=== PATIENT | female | born 1945 | race Caucasian/White ===

== ENCOUNTER 2018-10-27 19:15 | Emergency (ER) | payer OTHER ==
[~2018-10-27] VITALS: Ht 165.1 cm; Wt 64.9 kg
--- NOTE | ~2018-10-27 | EKG ---
[place] [address] [facility] [place] [address] ELECTROCARDIOGRAM REPORT Name: POLO DEL CASTILLO Room #: [facility]#: [id number] Admission: 10/27/18 Attend Phys: Discharge: 10/27/18 Date of : 45 Report #: [id number] THIS REPORT FOR: //name// [facility] ED Test Date: 2018-10-27 Test Time: 19:49:06 Pat Name: POLO DEL CASTILLO Department: Room: Gender: F [employer] [place]: MAEGAN : 1945 Requested By: aSndra Paz Order Number: [id number] MD: Milo Mendez Measurements Intervals [place] Rate: 77 P: 65 CA: 184 QRS: -44 QRSD: 109 T: 99 QT: 412 QTc: 467 Interpretive Statements Sinus rhythm LVH with secondary repolarization abnormality Anterior Q waves, possibly due to LVH Compared to ECG 04/30/2015 14:24:30 No significant change was found Electronically Signed On 10-28-2018 16:07:11 MOLD CARRIER by Milo Mendez [email or web address] <ELECTRONICALLY SIGNED> By: Milo Mendez MD, [facility] 10/28/18 1607 48 48 Milo Mendez MD, FAC /EPI
[~2018-10-27 19:15] MED LIST: ALLERGY RELIEF180 MG PO; ASPIR 8181 MG PO; AUGMENTIN 875875 MG PO; COREG25 MG PO; FLAGYL500 MG PO; FLORANEX TABLE1 EACH PO; JANUVIA100 MG PO; LANTUS100 UNIT/M SUBQ; LEVAQUIN 500 M500 M2 PO; LIPITOR10 MG PO; LOMOTIL TABLET1 EACH PO; MYFORTIC360 MG PO; NEXIUM40 MG PO; NORVASC5 MG PO; ONDANSETRON HCL4 M2 PO; PROGRAF0.5 MG PO; RESTORIL30 MG PO; VITAMIN D2000 UNIT PO; WELLBUTRIN SR100 MG PO; XANAX 0.5 MG0.5 MG PO; ZOFRAN4 MG PO
[2018-10-27 20:13] LABS: URINE BLOOD NEGATIVE (Negative); URINE CLARITY CLEAR; URINE COLOR YELLOW; URINE GLUCOSE-RANDOM* NEGATIVE (Negative); URINE KETONES TRACE (Negative); URINE LEUKOCYTES NEGATIVE (Negative); URINE NITRITE NEGATIVE (Negative); URINE PROTEIN (DIPSTICK) NEGATIVE (Negative); URINE SPECIFIC GRAVITY >= 1.030 (1.005-1.035); URINE UROBILINOGEN 0.2 E.U./dl (0.2-1.0)
[2018-10-27 20:15] LABS: ICTOTEST (BILI CONFIRMATORY) Negative (Negative); URINE BILIRUBIN NEGATIVE (Negative)
[2018-10-27 20:23] LABS: MCH 30.2 pg (26.0-34.0)
[2018-10-27 20:25] LABS: ABSOLUTE NEUTROPHILS 8.8 thou/uL (1.4-8.2); BASOPHILS 0.4 % (0.0-2.0); EOSINOPHILS 0.7 % (0.0-3.0); HEMATOCRIT 42.7 % (37.0-47.0); HEMOGLOBIN 14.7 gm/dL (12.0-15.0); LYMPHOCYTES 4.1 % (24.0-44.0); MCHC 34.4 g/dL (28.0-37.0); MONOCYTES 2.2 % (1.0-8.0); PLATELET COUNT 178 thou/uL (150-400); POLYS 92.6 % (36.0-66.0); RBC 4.85 mil/uL (4.20-5.00); RDW 13.9 % (10.5-14.5); WBC 9.4 thou/uL (4.0-11.0)
[2018-10-27] MEDS ORDERED: ZANTAC 150MG T150 MG PO (20:25)
[2018-10-27] MEDS ORDERED: NOVOLOG100 UNIT/1 SUBQ (20:26)
[2018-10-27] MEDS ORDERED: ZYRTEC10 M5 PO (20:27)
[2018-10-27 20:33] LABS: ANION GAP 13 mmol/L (7-16); BUN 20 mg/dL (7-18); CALCIUM 9.9 mg/dL (8.5-10.1); CHLORIDE 103 mmol/L (98-107); CO2 23 mmol/L (21-32); GLUCOSE 157 mg/dL (74-106); POTASSIUM 4.6 mmol/L (3.5-5.1); SODIUM 139 mmol/L (136-145)
[2018-10-27 20:40] LABS: ALBUMIN 4.2 g/dL (3.4-5.0); DIRECT BILIRUBIN < 0.1 mg/dL (<0.1-0.3); SGOT 21 U/L (15-37); SGPT 18 U/L (30-65); TOTAL BILIRUBIN 0.5 mg/dL (<0.1-1.0); TOTAL PROTEIN 7.9 g/dL (6.4-8.2); TROPONIN-I <0.06 ng/mL (<0.06)
[2018-10-27] MEDS ORDERED: REGLAN 10 MG TA10 MG PO (22:50)
[2018-10-27 23:55] VITALS: BP 143/78
== END 2018-10-27 23:55 | disposition home or self-care (01) ==
LOC: ER 19:15
PROVIDERS: Physician Assistant
DX: R11.2 Nausea with vomiting, unspecified (principal); R19.7 Diarrhea, unspecified; R10.9 Unspecified abdominal pain; K21.9 Gastro-esophageal reflux disease without esophagitis; E11.9 Type 2 diabetes mellitus without complications; I10 Essential (primary) hypertension; Z85.828 Personal history of other malignant neoplasm of skin; Z90.710 Acquired absence of both cervix and uterus; Z95.5 Presence of coronary angioplasty implant and graft; Z94.0 Kidney transplant status; Z98.890 Other specified postprocedural states; Z88.2 Allergy status to sulfonamides; Z88.8 Allergy status to other drugs, medicaments and biological substances; Z79.4 Long term (current) use of insulin

== ENCOUNTER → 2018-11-06 | Outpatient (CLI) | payer OTHER ==
[~2018-11-06] MED LIST changes: +NOVOLOG100 UNIT/1 SUBQ; +REGLAN 10 MG TA10 MG PO; +ZANTAC 150MG T150 MG PO; +ZYRTEC10 M5 PO
== END ==
LOC: CAT 12:19
DX: K57.30 Diverticulosis of large intestine without perforation or abscess without bleeding (principal); I70.0 Atherosclerosis of aorta; J98.11 Atelectasis; K59.00 Constipation, unspecified; M25.78 Osteophyte, vertebrae

== ENCOUNTER → 2018-11-11 | Outpatient (CLI) | payer OTHER ==
[~2018-11-11] MED LIST changes: +ACETAMINOPHEN325 M1 PO; +AMBIEN 5 MG TABL5 M1 PO; +CIPRO500 MG PO; +COLACE 100 MG100 MG PO; +METRONIDAZOLE500 M4 PO; +OSTERA TABLET1 EAC1 PO; +PERCOCET PO; +PROBIOTIC1 EAC1; +PROGRAF1 MG PO; +ZOFRAN 4 MG ORAL4 MG DISSOLVE
[2018-11-11 15:29] LABS: CREATININE 1.4 mg/dL (0.6-1.0)
== END ==
LOC: LABMALL 14:54 → CAT 14:54
PROVIDERS: Nurse Practitioner
DX: K57.92 Diverticulitis of intestine, part unspecified, without perforation or abscess without bleeding (principal); N26.1 Atrophy of kidney (terminal)

== ENCOUNTER 2018-12-02 13:03 | Inpatient (IN) | payer OTHER ==
[~2018-12-02] VITALS: Ht 165.1 cm; Wt 59.9 kg
[~2018-12-02 13:03] MED LIST changes: -ACETAMINOPHEN325 M1 PO; -AMBIEN 5 MG TABL5 M1 PO; -CIPRO500 MG PO; -COLACE 100 MG100 MG PO; -METRONIDAZOLE500 M4 PO; -OSTERA TABLET1 EAC1 PO; -PERCOCET PO; -PROBIOTIC1 EAC1; -PROGRAF1 MG PO; -ZOFRAN 4 MG ORAL4 MG DISSOLVE
--- NOTE | 2018-12-02 13:42 | NUR ---
REC DIRECT ADMIT AROUND 1330, CALLED DR. FELICIANO TO GIVE HEADS UP, PT STATES SX HAVE HAPPENED 3X SINCE HER KIDNEY TRANSPLANT IN 2013 (HAS BOTH KIDNEYS YET EXPLAINED IT WAS ADDED TO HER RIGHT ABDOMEN, CALLED AIDE TO HELP WITH GETTING PT SETTLED. WILL CONTINUE W/ASSESSMENT AND ADMISSION. LET HER KNOW SHE COULD LIE DOWN WHILE SHE WAITED FOR STAFF.
[2018-12-02] MEDS ORDERED: PROBIOTIC1 EAC1 (14:18)
[2018-12-02] MEDS ORDERED: AMBIEN 5 MG TABL5 M1 PO (14:22)
[2018-12-02] MEDS ORDERED: OSTERA TABLET1 EAC1 PO (14:22)
[2018-12-02 14:39] VITALS: BP 142/65
[2018-12-02 16:00] LABS: HEMOGLOBIN 12.1 gm/dL (12.0-15.0); MCH 28.6 pg (26.0-34.0); MCHC 32.6 g/dL (28.0-37.0); MCV 87.7 fL (80.0-100.0); RBC 4.22 mil/uL (4.20-5.00); RDW 14.3 % (10.5-14.5); WBC 5.2 thou/uL (4.0-11.0)
[2018-12-02 16:12] LABS: CALCIUM 9.3 mg/dL (8.5-10.1); CREATININE 1.4 mg/dL (0.6-1.0)
[2018-12-02 16:16] LABS: ALBUMIN 3.7 g/dL (3.4-5.0); TOTAL BILIRUBIN 0.3 mg/dL (<0.1-1.0); TOTAL PROTEIN 7.3 g/dL (6.4-8.2)
--- NOTE | 2018-12-02 16:22 | NUR ---
SEVERAL IV ATTEMPTS MADE BY THIS NURSE AND ANOTHER, CALLING IV TEAM FOR ASSISTANCE. PT DOING WELL, CALM, NO PAIN AT THIS TIME
[2018-12-02 18:00] VITALS: BP 139/62
--- NOTE | 2018-12-02 19:04 | NUR ---
CT CALLED, PT CANNOT HAVE CONTRAST, EMAILED DR. FELICIANO TO GIVE HIM AN FYI SO HE CAN CALL BACK/ORDER OTHERWISE, WILL LET NOC NURSE KNOW TO KEEP A HEADS UP
--- NOTE | 2018-12-02 19:37 | NUR ---
DR FELICIANO TALKING W/PT REGARDING ORDERING OXYCODONE AND WHETHER OR NOT SHE CAN HAVE CONTRAST, NOC NURSE AWARE
[2018-12-02 20:00] VITALS: BP 154/63; BP 154/868
[2018-12-02 21:53] LABS: URINE BILIRUBIN NEGATIVE (Negative); URINE BLOOD NEGATIVE (Negative); URINE CLARITY CLEAR; URINE COLOR YELLOW; URINE GLUCOSE-RANDOM* NEGATIVE (Negative); URINE KETONES NEGATIVE (Negative); URINE LEUKOCYTES 1+ (Negative); URINE NITRITE NEGATIVE (Negative); URINE PROTEIN (DIPSTICK) NEGATIVE (Negative); URINE SPECIFIC GRAVITY <= 1.005 (1.005-1.035); URINE UROBILINOGEN 0.2 E.U./dl (0.2-1.0)
[2018-12-02 22:13] LABS: CASTS None Seen /LPF (None Seen); SQUAMOUS 4-10 Moderate /LPF (0-3)
[2018-12-02 22:14] LABS: BACTERIA 1-9 Few /HPF (None Seen); CRYSTALS None Seen /LPF (None Seen); URINE RBC 3-10 Few /HPF (0-2); URINE WBC 6-15 Few /HPF (0-5)
[2018-12-02] MEDS ORDERED: PROGRAF1 MG PO (22:33)
[2018-12-03 00:05] VITALS: BP 130/58
--- NOTE | 2018-12-03 03:28 | NUR ---
ASSUMED PT CARE AROUND 1900. A&OX4. C/O CHRONIC BACK AND NECK PAIN. PRN PAIN MEDICATION GIVEN WITH SOME RELIEF. PT HAS HAD ONE LOOSE STOOL SO FAR THIS SHIFT. STOOL SAMPLE FOR CDIFF PENDING RESULTS. PT REFUSED CT SCAN WITH CONTRAST. SHE WANTS TO TALK TO THE DRS IN THE MORNING ABOUT HER OPTIONS FOR A SCAN WITHOUT CONTRAST BECAUSE SHE IS CONCERNED ABOUT HER KIDNEY FUNCTION. PT IS UP AD MADIHA IN THE ROOM. STEADY GAIT. VSS. AFEBRILE. PT STATES SHE IS FEELING BETTER OVERALL TONIGHT. PROGRESSING SLOWLY TOWARD POC GOALS. WILL CONTINUE TO MONITOR FURTHER.
[2018-12-03 04:08] LABS: CALCIUM 9.3 mg/dL (8.5-10.1); POTASSIUM 4.3 mmol/L (3.5-5.1)
[2018-12-03 04:12] LABS: HEMATOCRIT 33.8 % (37.0-47.0); HEMOGLOBIN 11.4 gm/dL (12.0-15.0); MCH 29.4 pg (26.0-34.0); MCHC 33.7 g/dL (28.0-37.0); MCV 87.3 fL (80.0-100.0); RBC 3.87 mil/uL (4.20-5.00)
[2018-12-03 05:10] VITALS: BP 141/59
[2018-12-03 07:28] VITALS: BP 125/59
[2018-12-03 11:12] VITALS: BP 136/59
[2018-12-03 15:44] VITALS: BP 135/56
--- NOTE | 2018-12-03 16:19 | NUR ---
ASSESSMENT: CM REVIEWED CHART AND MET WITH PATIENTA THE BEDSIDE. PT IS ALERT AND ORIENTED X4. PTS IS PRESENT. PT REPORTS THAT SHE LIVES IN A CONDO WITH HER . PT STATES 2 STEPS WITH NO HANDRAILS TO ENTER. PT REPORTS ONCE INSIDE SHE HAS 14 STEPS WITH HANDRAILS TO HER BEDROOM. PT REPORTS SHE IS INDEPENDENT WITH ADLS AND AMBULATION. PT REPORTS THAT SHE HAS A GRAB BAR IN THE SHOWER. PT REPORTS THAT SHE HAS NOT HAD HH IN THE PAST. PT REPORTS SHE DOES NOT ANTICIPATE HAVING ANY NEEDS AT DISCHARGE. CM WILL CONTINUE TO FOLLOW TO ASSIST NEEDED.
--- NOTE | 2018-12-03 17:44 | NUR ---
care of pt assumed this am @ 0700. pt npo this am for breakfast, then received full liquids for lunch and dinner, w/o n/v/d. pt has had no bm today. pt receiving ivf's w/o issue and voiding w/o issue. pt co chronic back and neck pain today w/ an added pain to her left posterior head, pain medication given w/ a heating pad ordered for pt comfort. pt planning on an egd w/ dr. langston in am w/ a possible flex sigmoidoscopy to follow. pt also will have a ct of abdomen w/o contrast tomorrow. pt visited by her this evening.
[2018-12-03 18:56] VITALS: BP 134/57
[2018-12-04 04:35] VITALS: BP 136/59
--- NOTE | 2018-12-04 05:45 | NUR ---
PT STATES SHE IS NOT HAVING ANY LOOSE STOOLS. PT HAD A SMALL FORMED BM 12/03. PT REQUESTED A SHOWER THIS AM. CALLED AND GOT ORDER FOR SHOWER. PT HAS BEEN NPO SINCE 2400. PT GOT TO GET CT SCAN LAST NIGHT. HOURLY ROUNDING.
[2018-12-04 06:04] LABS: ALBUMIN 2.7 g/dL (3.4-5.0); CALCIUM 7.9 mg/dL (8.5-10.1); CREATININE 0.8 mg/dL (0.6-1.0); PHOSPHORUS 3.3 mg/dL (2.5-4.9); POTASSIUM 3.8 mmol/L (3.5-5.1)
[2018-12-04 07:33] VITALS: BP 149/65
[2018-12-04 11:46] VITALS: BP 164/73
--- NOTE | 2018-12-04 13:35 | NUR ---
PT TRANSPORTED PER WHEELCHAIR TO GI LAB.
[2018-12-04 16:00] VITALS: BP 165/66
--- NOTE | 2018-12-04 18:38 | NUR ---
SHIFT SUMMARY: PT HAD EGD TODAY. DR. ULLOA NOTIFIED OF CONSULT- UPDATED MD AND MEROPENEM ADMINISTERED PER ORDER. PT ALERT, ORIENTED, PERCOCET PO GIVEN FOR CHRONIC POSTERIOR HEAD AND NECK PAIN. SR, ROOM AIR, TOLERATING PO POST EGD, ADEQUATE URINE OUTPUT, DIARRHEA STOOLS X 2. PRESENT, PROVIDING SUPPORT. PT PROGRESSING.
--- NOTE | 2018-12-04 19:28 | P ---
[facility] [place] [address] PROCEDURE REPORT Name: POLO DEL CASTILLO Room #: 349-I ADM IN .R.#: [id number] Admission: 12/02/18 Attend Phys: Paulino Ortiz MD Discharge: Date of : 45 Report #: [id number] THIS REPORT FOR: //name// CC: Lyle Tay MD PROCEDURE: EGD with biopsy. She is a patient of Dr. Pablo Tay and Dr. Paulino Ortiz. CHIEF COMPLAINT: This is a very pleasant 73-year-old female who is well known to me from previous evaluations whom I am asked to evaluate for possible etiologies of nausea and vomiting and abdominal pain that has not resolved despite treatment with Cipro and Flagyl for acute diverticulitis in October of last year. The patient says the pain has never really completely subsided. She has no appetite. She has had nausea and vomiting. She is a kidney transplant patient and is on immunosuppressive therapy to prevent rejection. She is at increased risk of complications from intraabdominal infections because of these facts. DESCRIPTION OF PROCEDURE: Informed consent for this procedure was obtained prior to the administration of any medication. The risks of the procedure, which include but are not limited to bleeding, perforation, infection, complications of sedation and the possibility I could miss something have been explained to the patient and she has indicated her consent by signing. Anesthesia kindly provided deep sedation for this procedure. The Olympus upper videoscope was introduced through the upper esophageal sphincter and advanced under direct visualization to the third portion of the duodenum. Findings are noted on withdrawal of the scope. The duodenal mucosa appears normal throughout its entirety. Pylorus, normal mucosa. Antrum, some patchy erythema is seen in the antrum of the stomach. Biopsies were obtained x 2 for histopathology to evaluate for H. pylori infection. Body, normal mucosa. Cardia and fundus, normal mucosa. Retroflexed view did not reveal any other abnormalities. The scope was withdrawn into the esophagus. The Z-line is appropriately located at the top of the gastric folds and appears normal. The esophageal mucosa appears normal throughout its entirety. The scope was withdrawn. The patient went to the recovery area in stable condition. She tolerated the procedure well. IMPRESSION: Mild patchy erythema of the antrum, biopsies pending. Recommendations are to await the biopsy results. We will continue the proton pump inhibitors and antiemetics. [address] [address] PROCEDURE REPORT Name: POLO DEL CASTILLO Room #: 349-I [facility] IN ..#: [id number] Admission: 12/02/18 Attend Phys: Paulino Ortiz MD Discharge: Date of : 45 Report #: [id number] scan of the abdomen and pelvis that was done to evaluate a history of diverticulitis, that just seems to not resolve that started in mid October, was obtained and despite adequate antibiotic coverage as an outpatient she still appears to have an acute diverticulitis of the descending sigmoid colon junction. I am going to ask Dr. Hanson to see her regarding Infectious Disease thoughts about this. He has seen her in the past and see if he thinks she needs to be on some stronger IV antibiotics to clear this diverticulitis. The patient is on immunosuppression for a renal transplant and I believe that she takes Myfortic and FK506. Thank you very much once again for allowing me to participate in her care. <ELECTRONICALLY SIGNED> By: Shabana Rivera DO 12/04/18 1928 1434 1641 Shabana Rivera DO /nt
[2018-12-04 19:37] VITALS: BP 131/67
[2018-12-05 05:46] VITALS: BP 125/67
--- NOTE | 2018-12-05 06:47 | NUR ---
PROGRESSING TOWARDS DC GOALS. PAIN LEVELS DECREASING WITH CHIEF COMPLIANT OF PAIN COMING FROM LLQ. POC WITH NEW ANTIBIOTIC GIVEN 2X. WASHED PTS HAIR. PT IS IN BETTER SPIRITS. HOURLY ROUNDING.
[2018-12-05 07:17] VITALS: BP 145/70
--- NOTE | 2018-12-05 09:41 | HC ---
[facility] [place] [address] CONSULTATION Name: POLO DEL CASTILLO Room #: 349-I [facility] IN ..#: [id number] Admission: 12/02/18 Attend Phys: Paulino Ortiz MD Discharge: Date of : 45 Report #: [id number] THIS REPORT FOR: //name// CC: Paulino Tay REASON FOR CONSULTATION: Status post kidney transplantation. REASON FOR PRESENTATION: Persistent diarrhea. HISTORY OF PRESENT ILLNESS: A 73-year-old with past medical history of hypertension, hyperlipidemia, coronary artery disease and diabetes mellitus. She is known to have kidney transplant with stable renal function on dual immunosuppression. She presented with persistent diarrhea for the last few days. Because of the persistent diarrhea and toward the end of the events, she had some issues with bright red blood when she was wiping. She had remote history of diverticulitis. She felt somewhat weak. No fever or chills. She presented to be further evaluated. From the renal perspective, as I stated, she is a renal transplant patient, donor, and is maintained on dual immunosuppression. Her kidney function was slightly worse than her baseline when she presented; however, it is back to her usual status. PAST MEDICAL HISTORY: 1. Hypertension. 2. Diabetes mellitus. 3. 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 4. Coronary artery disease. 5. Post coronary stent in 1996. 6. Hysterectomy. 7. Laminectomy. 8. Skin cancer removal. MEDICATIONS: Include Prograf, mycophenolate, pantoprazole, alprazolam, carvedilol, vitamin D and amlodipine. ALLERGIES: SULFA. FAMILY HISTORY: No known renal history in the family. SOCIAL HISTORY: She does not smoke. She lives with her . REVIEW OF SYSTEMS: GENERAL: No fever or chills. CARDIOVASCULAR: No chest pain or palpitation. PULMONARY: No cough or hemoptysis. GASTROINTESTINAL: As per the history of present illness. [facility] [address] [place] [address] CONSULTATION Name: POLO DEL CASTILLO Room #: [address] [place] [address] [place] [facility]#: [id number] Admission: 12/02/18 Attend Phys: Paulino Ortiz MD Discharge: Date of : 45 Report #: [id number] GENITOURINARY: No frequency or urgency. NEUROLOGIC: Significant for weakness. HEMATOLOGIC: No easy bruisability. No epistaxis. PHYSICAL EXAMINATION: GENERAL: Alert, oriented, in no apparent distress. VITAL SIGNS: Blood pressure is 125/59, pulse rate 68 and temperature 36.7. HEAD AND NECK: No jugular venous distention. No bruit, no thyromegaly. CHEST: Clear to auscultation bilaterally. CARDIOVASCULAR: No rub detected. ABDOMEN: Soft, nontender with no hepatosplenomegaly. LOWER EXTREMITIES: No edema, with intact peripheral pulses. LABORATORY DATA: Laboratory values reviewed. Creatinine was 1.4 yesterday and is down to 1.0. Hemoglobin is stable. C. diff is pending. ASSESSMENT, IMPRESSION AND PLAN: 1. Post kidney transplantation. 2. Gastrointestinal illness. 3. Diabetes mellitus. 4. Hypertension. 5. Coronary artery disease. 6. From the renal perspective, the patient's renal function has improved with IV hydration. 7. Continue with the Prograf. 8. Continue with Myfortic. 9. GI workup in progress. 10. Continue with home medications for her diabetes mellitus and hypertension. 11. Avoid nephrotoxins, including contrast. <ELECTRONICALLY SIGNED> By: Montse Keane MD 12/05/1841 1 Montse Keane MD /nt
--- NOTE | 2018-12-05 10:57 | NUR ---
ORDERS RECEIVED FOR EVAL AND TREAT. Pt IS UP AD MADIHA IN ROOM. SPOKE WITH Pt WHO STATES SHE HAS BEEN GETTING UP ON HER OWN IN HER ROOM WITHOUT DIFFICULTY AND DOES NOT FEEL WEAK OR OFF BALANCE. DECLINING A FORMAL P.T. EVAL.
[2018-12-05 11:34] VITALS: BP 139/58
--- NOTE | 2018-12-05 12:20 | NUR ---
ON-GOING Assessment: CM REVIEWED CHART AND SPOKE WITH ATTENDING. PT WILL CONTINUE TO BE INPATIENT ON IV ANBX FOR COUPLE MORE DAYS WITH POSSIBLE DISCHARGE HOME THIS WEEKEND. PT WILL HAVE NO NEEDS AT DISCHARGE.
[2018-12-05 16:20] VITALS: BP 146/63
--- NOTE | 2018-12-05 18:26 | NUR ---
assumed patient care at 0700. a/o x4. pleasant. tolerated diet. no bleeding no diahrria noted. up ad joanna. progressing towards poc goals.
[2018-12-05 19:00] VITALS: BP 149/64
--- NOTE | 2018-12-06 02:52 | NUR ---
ASSUMED CARE OF PT AT 1900. A&Ox4, COOPERATIVE. VS STABLE. PT C/O PAIN IN BACK OF NECK, HEAD AND CHEST, MEDS GIVEN W/ PARTIAL RELIEF. C/O INDIGESTION AND REQUESTED MEDS, PROVIDED, WITH PARTIAL RELIEF BUT WAS ABLE TO SLEEP. 1 SM FORMED BM, NO DIARRHEA THUS FAR. NO ACUTE DISTRESS. PROGRESSING WELL TOWARDS POC GOALS.
[2018-12-06 03:34] VITALS: BP 154/61
[2018-12-06 06:05] LABS: ALBUMIN 3.3 g/dL (3.4-5.0); CALCIUM 9.1 mg/dL (8.5-10.1); CREATININE 0.7 mg/dL (0.6-1.0); PHOSPHORUS 3.3 mg/dL (2.5-4.9); POTASSIUM 4.3 mmol/L (3.5-5.1)
[2018-12-06 07:07] VITALS: BP 149/78
[2018-12-06 11:11] VITALS: BP 146/63
[2018-12-06 16:18] VITALS: BP 131/63
--- NOTE | 2018-12-06 17:52 | NUR ---
care of pt assumed this am @ ~0700. pt noted to be up ad joanna w/ a strong, steady and balanced gait. pt alert, mentally sharp and very involved and aware w/ her health and the care of body. pt has called food product inspector for each of her meals to personalize them so that she can receive the best nutrition to help her body heal and add weight which she has lost over the last few months. pt has enjoyed ice cream and sherbert today in addition to her meals. pt has a hx of chronic neck and back discomfort, use of heating pad and pain medication today to comfort w/ success. continuous ivf's were stopped late this afternoon per dr. jimenez. pt was hopeful to have a visit from her , but the weather and road conditions did not allow him to visit today. pt was noted to be up ambulating in the hallways today. pt received a shower today which did lift her spirts and outlook today. pt is hopeful for discharge on Saturday.
[2018-12-06 19:20] VITALS: BP 138/60
--- NOTE | 2018-12-07 01:51 | NUR ---
ASSUMED CARE OF PT AT 1900. A&Ox4, COOPERATIVE. REQUESTED PAIN MEDS AT , PROVIDED. NEW IV PLACED IN L ARM. SAME PREVIOUS NOC SHIFT. CURRENTLY RESTING, NO ACUTE DISTRESS. PROGRESSING WELL TOWARDS POC GOALS.
[2018-12-07 03:25] VITALS: BP 117/59
[2018-12-07 07:14] VITALS: BP 151/65
[2018-12-07 11:41] VITALS: BP 119/55
[2018-12-07 15:07] VITALS: BP 121/55
--- NOTE | 2018-12-07 15:29 | NUR ---
assumed patient care at 0700. a/o x4. up ad joanna. denies pain, no diarrhea. transfer to senior suites at 1500.
--- NOTE | 2018-12-07 17:55 | NUR ---
PATIENT TRANSFERRED TO UNIT APPROXIMATELY 1430. REPORT GIVEN BY NURSE MEDEIROS ON 4E. PATIENT SETTLED AND ORIENTED TO UNIT. CALL LIGHT WITHIN REACH. PATIENT SITTING IN BED WATCHING TV.
[2018-12-07 19:35] VITALS: BP 168/70
--- NOTE | 2018-12-08 02:50 | NUR ---
ASSUMED CARE OF PATIENT AT 1900. VSS. ASSESSMENT COMPLETED AT 2108 AND IS DOCUMENTED. K-PAD OBTAINED FOR BACK AND NECK PAIN RELIEF. PRN PERCOCET GIVEN AT D/T C/O 4-05/04 MID-BACK PAIN. NEW ORDER FOR CALCIUM CARBONATE RECEIVED FROM GEOFF ROSADO D/T C/O ACID REFLUX/INDIGESTION. ADMINISTERED AND DESIRED EFFECT ACHIEVED. RIGHT UPPER ARM FISTULA BRUIT AUDIBLE AND THRILL PALPABLE. NO DRSG IN PLACE. LEFT FA PIV PATENT AND SALINE LOCKED. IV ABT INFUSED WITHOUT COMPLICATION. PT CURRENTLY SLEEPING SOUNDLY IN BED IN NO ACUTE DISTRESS. ABLE TO CALL OUT APPROPRIATELY AND CALL LIGHT IS WITHIN REACH. BED LOCKED AND IN LOWEST POSITION. WCTM.
[2018-12-08 08:07] VITALS: BP 135/78
--- NOTE | 2018-12-08 09:47 | HC ---
[facility] [place] [address] CONSULTATION Name: POLO DEL CASTILLO Room #: 223-P [facility] IN .R.#: [id number] Admission: 12/02/18 Attend Phys: Paulino Ortiz MD Discharge: Date of : 45 Report #: [id number] THIS REPORT FOR: //name// CC: Shabana Tay DATE OF SERVICE: 12/05/2018 INFECTIOUS DISEASE CONSULTATION ATTENDING PHYSICIAN: Pablo Tay MD REASON FOR CONSULTATION: Unresolved diverticulitis. HISTORY OF PRESENT ILLNESS: The patient is a 73-year-old white woman who became unwell at the end of 10/2018, visited with Dr. Tay, Kenji and Luh grajeda for gastrointestinal issues. She got some better, but issue did not completely resolve. She continued to have some abdominal discomfort, pain and diarrhea. The patient used to worse stomach flu, which apparently affected the , but has lingering the patient herself. She had an EGD and some gastritis found and I think she might have positive H. pylori. CT scan of abdomen and pelvis has revealed diverticulitis that is said to have improved on the second set of CT scan. She is still having some abdominal discomfort. DRUG ALLERGIES: SULFA DRUGS and SULFITES. MEDICATIONS: The patient is currently on treatment with meropenem 1 gram IV every 8 hours since last night, she is also receiving treatment with folic acid, pantoprazole, cyanocobalamin, magnesium oxide supplementation, tacrolimus, ondansetron, p.r.n. glucose glucagon, mycophenolate, p.r.n. oxycodone, carvedilol, p.r.n. acetaminophen, p.r.n. ondansetron and polyethylene glycol. SOCIAL HISTORY: See H and P, old record. FAMILY HISTORY: See H and P, old records. PAST MEDICAL HISTORY: 1. End-stage renal disease, status post transplantation at [facility]. 2. Hypertension. 3. Diabetes mellitus. 4. Coronary artery disease -- coronary artery stenting. 5. Laminectomy. 6. Hysterectomy. 7. History of skin cancers. [facility] [address] [place] [address] CONSULTATION Name: POLO DEL CASTILLO Room #: 223-P [facility] IN .R.#: [id number] Admission: 12/02/18 Attend Phys: Paulino Ortiz MD Discharge: Date of : 45 Report #: [id number] REVIEW OF SYSTEMS: Some improvement of nausea and vomiting; still having some abdominal discomfort. PHYSICAL EXAMINATION: GENERAL: A well-developed woman, not toxic looking, no distress. VITAL SIGNS: Temperature 98.4, pulse 67, respirations 17, BP 145/70. HEENMT: Head normocephalic, atraumatic. Pupils reactive. Evidence of previous cataract surgery and lens implants bilaterally. Mouth: No thrush hairy leukoplakia. NECK: Supple. No thyromegaly or lymphadenopathy. BREASTS: Deferred. LUNGS: Clear to auscultation. HEART: S1, S2. No gallop or murmur. ABDOMEN: No tenderness over the right lower abdominal quadrant transplanted kidney, some minimal tenderness over the left sigmoid, descending colon area. GENITOURINARY: Deferred. RECTAL: Deferred. EXTREMITIES: Normal. NEUROLOGIC: Grossly within normal limits. LABORATORY DATA: Sodium 143, BUN 7, creatinine 0.8. WBC 5.2, hemoglobin 12.1, platelets 201,000. Vitamin B12 normal. C. difficile toxin assay negative. Urinalysis revealed pyuria, microscopic hematuria. MICROBIOLOGY DATA: No urine culture obtained on admission. Blood cultures negative. RADIOLOGY EVALUATION: A CT scan of abdomen and pelvis revealed thickening of the descending colon wall compatible with diverticulitis, wall thickening, more prominent than on 11/06/2018, atrophic kidneys and new right lower abdominal quadrant transplanted kidney. EGD revealed mild patchy gastric erythema. ASSESSMENT: 1. Non-resolved acute diverticulitis. 2. Immunosuppressed host. 3. Renal transplant, on immunosuppressive agents. 4. Diabetes mellitus. 5. Coronary artery disease, status post stenting. SUGGESTIONS: Recommend meropenem 1 gram IV every 8 hours; a little too late to obtain urine culture, which should have been done in view abnormal UA. We will obtain ESR and CRP. Favor continuation of parenteral antibiotic for 24-[place] [address] CONSULTATION Name: POLO DEL CASTILLO Room #: 223-P ADM IN M.R.#: [id number] Admission: 12/02/18 Attend Phys: Paulino Ortiz MD Discharge: Date of : 45 Report #: [id number] Parmar, thank you for requesting my suggestions. <ELECTRONICALLY SIGNED> By: Lyle Hanson MD 12/08/18 0947 1118 1757 Lyle Hanson MD /nt
--- NOTE | 2018-12-08 09:58 | NUR ---
SW reviewed chart and spoke with nursing. Pt transferred to [facility] from and is progressing towards goals for discharge. Pt is s/p EGD. Pt remains on IV abx. Plan is for pt to d/c home when medically stable. ZAKIA is following to assist as needed with discharge planning.
[2018-12-08] MEDS ORDERED: ZOFRAN 4 MG ORAL4 MG DISSOLVE (11:23)
[2018-12-08] MEDS ORDERED: METRONIDAZOLE500 M4 PO (11:23)
[2018-12-08] MEDS ORDERED: CIPRO500 MG PO (11:23)
[2018-12-08] MEDS ORDERED: PERCOCET PO (11:23)
[2018-12-08] MEDS ORDERED: COLACE 100 MG100 MG PO (11:23)
[2018-12-08] MEDS ORDERED: ACETAMINOPHEN325 M1 PO (11:23)
--- NOTE | 2018-12-08 12:33 | NUR ---
ASSUMED CARE OF PATIENT THIS MORNING. PATIENT IS ALERT AND ORIENTED X4. SHE IS UP AD MADIHA. PATIENT IS NOT CURRENTLY COMPLAINING OF ANY PAIN. PATIENT HAS A R. UPPERARM FISTULA, HEAR THE BRUIT/FEEL THE THRILL. IV IS IN THE L. FOREARM S.L. PATIENT IS ON TWO IMMUNOSUPPRESSANTS. NO ABNORMAL ASSESSMENT FINDINGS. PATIENT USES K-PAD FOR NECK/BACK DISCOMFORT. PATIENT WILL BE DISCHARGED HOME THIS AFTERNOON. SHE IS CURRENTLY SITTING IN BED, WITH CALL LIGHT WITHIN REACH. PATIENT CALLS OUT APPROPRIATELY.
[2018-12-08 12:47] VITALS: BP 135/78
--- NOTE | 2018-12-08 13:22 | NUR ---
PATIENT READY FOR DISCHARGE HOME WITH 6 PRESCRIPTIONS. WILL FOLLOW UP WITH PRIMARY PHYSICIAN IN 2 WEEKS. IV BEING REMOVED. AND VOLUNTEER TRANSPORT CONTACTED TO WHEEL PATIENT OUT.
--- NOTE | 2018-12-08 14:27 | NUR ---
I AGREE WITH NURSING ASSESSMENT DONE BY SHAKA/TARAS.
--- NOTE | 2018-12-10 13:08 | PATH ---
[facility] [address] [place] [address] PATHOLOGY RPT PROCEDURE Name: POLO RUTH Room #: 223-P DIS IN M.R.#: [id number] Admission: 12/02/18 Date of : 45 Discharge: 12/08/18 Report #: [id number] Path Case #: [id number] [facility] Accession Number: [id number] . 01 Material submitted: . BIOPSY GASTRITIS R/O H-PYLORI . 01 Clinical history: . Gastritis . 02 Diagnosis: Gastric mucosa, gastritis, R/O H. pylori, endoscopic biopsy: - Mild focal active gastritis. - Negative for intestinal metaplasia or atrophy. - Negative for Helicobacter pylori (properly controlled immunohistochemical stain performed). (IUV:vickey; 12/08/2018) QMS/12/08/2018 . 02 Electronically signed: . Madison Titus MD, Pathologist NPI- [id number] . 01 Gross description: . Received in formalin labeled "Polo Ruth, gastritis BX, rule out H. pylori," are 2 segments of wong soft tissue measuring 0.7 x 0.2 x 0.1 cm in aggregate dimensions and ranging from 0.3 to 0.4 cm in maximum dimension. The specimen is submitted entirely in cassette A1. (TSD; 12/04/2018) TOB/TOB . 02 Pathologist provided ICD-10: K29.70 . 02 CPT . 437832, F99303 Specimen Comment: A courtesy copy of this report has been sent to Specimen Comment: [phone], , . Specimen Comment: Report sent to ,DR FELICIANO / DR GUTIÉRREZ Specimen Comment: A duplicate report has been generated due to demographic updates. Performed at: [address], [place], [place] [id number] MD Kraig Ryan MD Phone: [phone] Performed at: [address] [address] PATHOLOGY RPT PROCEDURE Name: POLO RUTH Room #: 223-P DIS IN M.R.#: [id number] Admission: 12/02/18 Date of : 45 Discharge: 12/08/18 Report #: [id number] Path Case #: [id number] [address] [place], [place] [id number] MD Madison Titus MD Phone: [phone]
== END 2018-12-08 14:29 | disposition home or self-care (01) | DRG 377 ==
LOC: 3W 13:03 → SICU 12-07 14:59 → ENTRNSPT 12-08 13:24 → EDTRNSPTSTS 12-08 13:34 → SICU 12-08 14:29
PROVIDERS: Hospitalist; ADMIT Hospitalist
PROC: 0DB68ZX Excision of Stomach, Via Natural or Artificial Opening Endoscopic, Diagnostic (ICD-10-PCS; principal; 2018-12-04)
DX: K57.33 Diverticulitis of large intestine without perforation or abscess with bleeding (principal); E43 Unspecified severe protein-calorie malnutrition; N18.6 End stage renal disease; Z94.0 Kidney transplant status; N17.9 Acute kidney failure, unspecified; I12.0 Hypertensive chronic kidney disease with stage 5 chronic kidney disease or end stage renal disease; K57.31 Diverticulosis of large intestine without perforation or abscess with bleeding; E78.5 Hyperlipidemia, unspecified; I25.10 Atherosclerotic heart disease of native coronary artery without angina pectoris; K21.9 Gastro-esophageal reflux disease without esophagitis; K52.9 Noninfective gastroenteritis and colitis, unspecified; E83.42 Hypomagnesemia; E11.22 Type 2 diabetes mellitus with diabetic chronic kidney disease; L53.8 Other specified erythematous conditions; E53.8 Deficiency of other specified B group vitamins; Z95.5 Presence of coronary angioplasty implant and graft; Z90.710 Acquired absence of both cervix and uterus; Z88.2 Allergy status to sulfonamides; Z79.82 Long term (current) use of aspirin; Z79.899 Other long term (current) drug therapy; Z83.79 Family history of other diseases of the digestive system; Z68.22 Body mass index [BMI] 22.0-22.9, adult; Z28.21 Immunization not carried out because of patient refusal
CPT/HCPCS: 10879; 15001; 15002; 62110; 62900; 70005

== ENCOUNTER → 2019-01-27 | Outpatient (CLI) | payer OTHER ==
[~2019-01-27] MED LIST changes: +ACETAMINOPHEN325 M1 PO; +AMBIEN 5 MG TABL5 M1 PO; +CIPRO500 MG PO; +COLACE 100 MG100 MG PO; +METRONIDAZOLE500 M4 PO; +OSTERA TABLET1 EAC1 PO; +PERCOCET PO; +PROBIOTIC1 EAC1; +PROGRAF1 MG PO; +ZOFRAN 4 MG ORAL4 MG DISSOLVE
== END ==
LOC: RAD 15:02
DX: S99.921A Unspecified injury of right foot, initial encounter (principal); X58.XXXA Exposure to other specified factors, initial encounter; Y93.89 Activity, other specified; Y92.89 Other specified places as the place of occurrence of the external cause; Y99.8 Other external cause status

== ENCOUNTER 2019-09-20 19:19 | Emergency (ER) | payer OTHER ==
[~2019-09-20] VITALS: Ht 165.1 cm; Wt 62.6 kg
[2019-09-20 20:32] LABS: ABSOLUTE NEUTROPHILS 2.5 thou/uL (1.4-8.2); BASOPHILS 0.7 % (0.0-2.0); EOSINOPHILS 4.1 % (0.0-3.0); HEMATOCRIT 39.9 % (37.0-47.0); HEMOGLOBIN 13.2 gm/dL (12.0-15.0); LYMPHOCYTES 31.5 % (24.0-44.0); MCH 29.5 pg (26.0-34.0); MCHC 33.2 g/dL (28.0-37.0); MCV 88.8 fL (80.0-100.0); PLATELET COUNT 187 thou/uL (150-400); POLYS 54.7 % (36.0-66.0); RBC 4.49 mil/uL (4.20-5.00); WBC 4.6 thou/uL (4.0-11.0)
[2019-09-20 21:08] LABS: ALBUMIN 3.8 g/dL (3.4-5.0); ANION GAP 6 mmol/L (7-16); BUN 16 mg/dL (7-18); CALCIUM 9.6 mg/dL (8.5-10.1); CHLORIDE 102 mmol/L (98-107); CO2 31 mmol/L (21-32); CREATININE 1.1 mg/dL (0.6-1.0); DIRECT BILIRUBIN < 0.1 mg/dL (<0.1-0.3); GLUCOSE 132 mg/dL (74-106); POTASSIUM 4.2 mmol/L (3.5-5.1); SGOT 15 U/L (15-37); SGPT 10 U/L (30-65); SODIUM 139 mmol/L (136-145); TOTAL BILIRUBIN 0.2 mg/dL (<0.1-1.0); TOTAL PROTEIN 7.5 g/dL (6.4-8.2); TROPONIN-I <0.06 ng/mL (<0.06)
[2019-09-20 23:27] VITALS: BP 146/59
--- NOTE | 2019-09-22 08:32 | EKG ---
[place] [address] [facility] [place] [address] ELECTROCARDIOGRAM REPORT Name: POLO DEL CASTILLO [place] [id number] Admission: 09/20/19 Attend Phys: Discharge: 09/20/19 Date of : 45 Report #: [id number] THIS REPORT FOR: //name// [facility] ED Test Date: 2019-09-20 Test Time: 19:25:57 Pat Name: POLO DEL CASTILLO Department: Room: Gender: F Driller'S Assistant: NANDINI : 1945 Requested By: Danni Serrano Order Number: [id number] MD: Noman Hanson Measurements Intervals [place] Rate: 64 P: 32 MA: 200 QRS: -36 QRSD: 114 T: 89 QT: 427 QTc: 441 Interpretive Statements Sinus rhythm LVH with IVCD, LAD and secondary repol abnrm Compared to ECG 10/27/2018 19:49:06 Intraventricular conduction delay now present Q waves no longer present Electronically Signed On 09-22-2019 8:32:07 CDT by Noman Hanson [email or web address] <ELECTRONICALLY SIGNED> By: Noman Hanson MD 09/22/19 0832 24 24 Noman Hanson MD /EPI
== END 2019-09-20 23:27 | disposition home or self-care (01) ==
LOC: ER 19:19
PROVIDERS: Emergency Medicine
DX: R07.2 Precordial pain (principal); E78.5 Hyperlipidemia, unspecified; E11.22 Type 2 diabetes mellitus with diabetic chronic kidney disease; N18.6 End stage renal disease; Z99.2 Dependence on renal dialysis; Z94.0 Kidney transplant status; Z95.5 Presence of coronary angioplasty implant and graft; Z90.710 Acquired absence of both cervix and uterus; Z85.828 Personal history of other malignant neoplasm of skin; Z88.2 Allergy status to sulfonamides

== ENCOUNTER → 2020-06-01 | Outpatient (CLI) | payer OTHER | LOC: SJCVCIMAG | PROVIDERS: ATTEND Internal Medicine Cardiovascular Disease | DX: I65.23 Occlusion and stenosis of bilateral carotid arteries (principal); I05.9 Rheumatic mitral valve disease, unspecified; I11.9 Hypertensive heart disease without heart failure; I25.10 Atherosclerotic heart disease of native coronary artery without angina pectoris; E11.40 Type 2 diabetes mellitus with diabetic neuropathy, unspecified; K21.9 Gastro-esophageal reflux disease without esophagitis; E78.5 Hyperlipidemia, unspecified; Z79.899 Other long term (current) drug therapy; Z82.49 Family history of ischemic heart disease and other diseases of the circulatory system ==

== ENCOUNTER → 2020-06-07 | Outpatient (CLI) | payer OTHER ==
--- NOTE | 2020-06-08 17:07 | PATH ---
[facility] [address] [place] [address] PATHOLOGY RPT PROCEDURE Name: POLO RUTH Room #: REG [facility] [place].#: [id number] Admission: 06/07/20 Date of : 45 Discharge: Report #: [id number] Path Case #: [id number] [facility] Accession Number: [id number] . 01 Material submitted: . breast - LEFT BREAST MASS 6:00 4CM. Modifiers: left, 6:00 . 01 Clinical history: . 6:00 4cm . 02 Diagnosis: Breast, left breast mass 6:00 4 cm from nipple, needle core biopsy: - Benign breast tissue showing non-proliferative fibrocystic changes including scattered foci of dense stromal fibrosis. - Negative for hyperplasia, atypia or malignancy. (IUV:pit 06/08/2020) QTP 06/08/2020 1211 Local . 02 Electronically signed: . Madison Titus MD, Pathologist NPI- [id number] . 01 Gross description: . The specimen is received in formalin, labeled "Polo Ruth, left breast" and consists of 3 fibroadipose breast needle cores measuring from 1.6-3.3 cm in length and 0.4 cm in diameter. They were collected at 9:45 AM in placed in formalin at 9:45 AM. The cold ischemic time is less than 1 minute in the total time in formalin is greater than 6 hours and less than 72. They are entirely submitted in A1-A3. ([facility]; 06/07/2020) JFQ/JFQ 06/07/2020 1524 Local . 02 Pathologist provided ICD-10: N60.12, N60.32 . 02 CPT . 956988 Specimen Comment: A courtesy copy of this report has been sent to [phone], [phone] Specimen Comment: [phone] Specimen Comment: Report sent to ,DR GUTIÉRREZ / DR RENAE Performed at: [address] [id number] MD Kraig Ryan MD Phone: [phone] Performed at: [address] [address] PATHOLOGY RPT PROCEDURE Name: POLO RUTH Room #: REG [facility]#: [id number] Admission: 06/07/20 Date of : 45 Discharge: Report #: [id number] Path Case #: [id number] [address], [place] [id number] MD Madison Titus MD Phone: [phone]
== END ==
LOC: BC 08:43
PROVIDERS: ATTEND Nurse Practitioner
DX: N60.12 Diffuse cystic mastopathy of left breast (principal)

== ENCOUNTER → 2021-02-28 | Outpatient (CLI) | payer OTHER | LOC: CAT 12:22 | PROVIDERS: ATTEND Nurse Practitioner | DX: N28.1 Cyst of kidney, acquired (principal); K82.1 Hydrops of gallbladder; K57.33 Diverticulitis of large intestine without perforation or abscess with bleeding; I70.0 Atherosclerosis of aorta; K57.30 Diverticulosis of large intestine without perforation or abscess without bleeding; M47.816 Spondylosis without myelopathy or radiculopathy, lumbar region; K59.00 Constipation, unspecified ==

== ENCOUNTER → 2021-06-26 | Outpatient (CLI) | payer OTHER | LOC: EDSTATUS 10:00 → SPEECH 10:00 → RAD 10:00 | PROVIDERS: ATTEND Neuromusculoskeletal Medicine & OMM | DX: J05.10 Acute epiglottitis without obstruction (principal); R13.12 Dysphagia, oropharyngeal phase ==

== ENCOUNTER → 2021-07-13 | Outpatient (CLI) | payer OTHER | LOC: SJCVC 12:12 | PROVIDERS: ATTEND Internal Medicine Cardiovascular Disease | DX: R94.31 Abnormal electrocardiogram [ECG] [EKG] (principal); I25.10 Atherosclerotic heart disease of native coronary artery without angina pectoris; E78.2 Mixed hyperlipidemia; E11.43 Type 2 diabetes mellitus with diabetic autonomic (poly)neuropathy; I65.23 Occlusion and stenosis of bilateral carotid arteries; R06.00 Dyspnea, unspecified; E11.22 Type 2 diabetes mellitus with diabetic chronic kidney disease; I12.9 Hypertensive chronic kidney disease with stage 1 through stage 4 chronic kidney disease, or unspecified chronic kidney disease; N18.9 Chronic kidney disease, unspecified; K21.9 Gastro-esophageal reflux disease without esophagitis; E78.5 Hyperlipidemia, unspecified; Z95.5 Presence of coronary angioplasty implant and graft; Z90.710 Acquired absence of both cervix and uterus; Z94.0 Kidney transplant status; Z79.82 Long term (current) use of aspirin; Z79.4 Long term (current) use of insulin; Z79.899 Other long term (current) drug therapy; Z88.8 Allergy status to other drugs, medicaments and biological substances; Z82.49 Family history of ischemic heart disease and other diseases of the circulatory system ==

== ENCOUNTER → 2021-07-27 | Outpatient (CLI) | payer OTHER | LOC: CAT 10:24 | PROVIDERS: ATTEND Nurse Practitioner | DX: J98.4 Other disorders of lung (principal); I70.0 Atherosclerosis of aorta; I25.10 Atherosclerotic heart disease of native coronary artery without angina pectoris ==

== ENCOUNTER → 2021-10-03 | Outpatient (CLI) | payer OTHER | LOC: BC 10:30 | PROVIDERS: ATTEND Neuromusculoskeletal Medicine & OMM | DX: Z12.31 Encounter for screening mammogram for malignant neoplasm of breast (principal); N64.89 Other specified disorders of breast ==

== ENCOUNTER 2021-10-23 13:04 | Emergency (ER) | payer OTHER ==
[~2021-10-23] VITALS: Ht 165.1 cm; Wt 74.8 kg
[2021-10-23] MEDS ORDERED: FLEXERIL PO (17:11)
[2021-10-23] MEDS ORDERED: NAPROXEN SODIU220 M2 PO (17:11)
[2021-10-23 17:51] VITALS: BP 124/65
== END 2021-10-23 18:07 | disposition home or self-care (01) ==
LOC: ER 13:04
DX: S63.501A Unspecified sprain of right wrist, initial encounter (principal); M19.90 Unspecified osteoarthritis, unspecified site; E11.9 Type 2 diabetes mellitus without complications; Z90.710 Acquired absence of both cervix and uterus; Z86.718 Personal history of other venous thrombosis and embolism; Z98.890 Other specified postprocedural states; Z85.828 Personal history of other malignant neoplasm of skin; Z94.0 Kidney transplant status; Z99.2 Dependence on renal dialysis; Z79.82 Long term (current) use of aspirin; Z79.891 Long term (current) use of opiate analgesic; Z79.899 Other long term (current) drug therapy; Z79.1 Long term (current) use of non-steroidal anti-inflammatories (NSAID); Z79.4 Long term (current) use of insulin; Z88.2 Allergy status to sulfonamides; Z88.8 Allergy status to other drugs, medicaments and biological substances; V49.3XXA Car occupant (driver) (passenger) injured in unspecified nontraffic accident, initial encounter; Y93.89 Activity, other specified; Y92.89 Other specified places as the place of occurrence of the external cause; Y99.8 Other external cause status

== ENCOUNTER → 2021-12-14 | Outpatient (CLI) | payer OTHER ==
[~2021-12-14] MED LIST changes: +FLEXERIL PO; +NAPROXEN SODIU220 M2 PO
== END ==
LOC: BC 09:20
PROVIDERS: ATTEND Nurse Practitioner
DX: N63.20 Unspecified lump in the left breast, unspecified quadrant (principal); R92.2 Inconclusive mammogram